=== PATIENT | male | born 1965 | race Caucasian/White ===

== ENCOUNTER 2018-06-10 13:49 | Observation (INO) ==
[2010-09-13 08:25] VITALS: BP 139/76
[2018-06-10] MEDS ORDERED: Sodium Chloride 0.9% 1,000 ML PRIMARY IV ONE (14:09)
[2018-06-10 14:27] LABS: BILIRUBIN,URINE NEGATIVE (NEG); CLARITY,URINE CLEAR (CLEAR); COLOR,URINE YELLOW (Y); GLUCOSE, URINE (UA) NEGATIVE (NEG); OCCULT BLOOD,URINE Trace-lysed (NEG); PH,URINE 5.5 (5.0-8.5); PROTEIN,URINE NEGATIVE (NEG); UROBILINOGEN,URINE 0.2 EU/dL (0.2)
[2018-06-10 14:33] LABS: RBC,URINE 0-1 /hpf; SQUAMOUS EPITHELIAL CELL,UR RARE; URINE CRYSTALS FEW; URINE SAMPLE TYPE CLEAN CATCH URINE
--- NOTE | 2018-06-10 14:47 | PDOC ---
General Adult HPI - General Chief Complaint: General Medical Stated Complaint: referal from michael r/o ruptured appy Date Seen by Provider: 06/10/18 Time Seen by Provider: 13:55 Source: POSITIVE: Patient Exam Limitations: POSITIVE: No limitations Nurse's Notes Reviewed & Considered: Yes - History of Present Illness Initial Comment: The patient is a 53-year-old male who is referred to the emergency department with an intra-abdominal abscess and possible ruptured appendicitis. The patient states that he had developed some "pinching" pain in his right lower abdomen 2 or 3 weeks ago. He states that this was more of a nagging pain and rated his pain level may be a 2 out of 10. This pain has continued however over the past 3 or 4 days he has developed "flulike" symptoms including fevers and chills which are worse primarily at night. He also reports that the pain in his right lower abdomen at times does seem to be getting worse. He notices this pain especially with certain movements and getting in and out of the vehicle. He has had some associated nausea and dry heaves. He has not noticed any significant change in bowel movements or urinary symptoms. He has had previous hernia repair however denies any other abdominal surgeries. He was initially evaluated at the walk-in clinic and blood work was drawn and he was sent to the radiology department for CT scan of the abdomen and pelvis. The CAT scan apparently shows an ill-defined swollen appendix with a 3.8 x 6 cm enhancing lesion in the right lower quadrant most likely representing abscess from perforated appendicitis. He was subsequently advised to come here to the emergency department for evaluation and surgical consultation. Have you received a tetanus shot in the past 10 years?: Unknown - Patient Home Medications Home Medications: Home Medications NK [No Home Medications Reported] 06/05/14 - Patient Allergies Allergies/Adverse Reactions: Allergies Allergy/AdvReac Type Severity Reaction Status Date / Time No Known Allergies Allergy Verified 06/10/18 13:50 Past Medical History - heen HEENT History: Denies History Cardiovascular History: Denies History Respiratory History: Denies History Gastrointestinal History: Denies History Genitourinary History: Denies History Endocrine History: Denies History Prosthesis or Implant: No Additional Musculoskeletal History: multi hip and spinal surgery Neurological History: Denies History Blood Disorders: Denies History Psychiatric History: Denies History History of Sexually Transmitted Diseases: No Cancer History: Denies History In Past Year Been Physically Harmed or Verbally Threatened: No History of MDRO: No Tobacco Use: Never Smoker Alcohol Use: Occasionally Type of alcohol normally used: Beer In the Past 12 Months, Have Used or Abuse Any Substance: None Previous Surgical History: Yes Type / Date of Surgery: hip surgery- left hip infection. hernia surgery. back surgery. viscetomy Anesthesia Reactions: No Malignant Hyperthermia: No Significant Family History: No pertinent family hx Past Medical History Reviewed: Reviewed - No Changes ROS - Limitations ROS Limitations: No Limitations Constitution: REPORTS: Chills, Fever Cardiovascular: REPORTS: Denies Cardiac Symptoms Respiratory: REPORTS: Denies Resp Symptoms Neurological: REPORTS: Denies Neuro Symptoms Gastrointestinal: REPORTS: Abdominal Pain, Nausea, Vomitting (Dry heaves) Musculoskeletal: REPORTS: Denies MS Symptoms Genitourinary: REPORTS: Denies Symptoms, Flank Pain (He states sometimes the pain does radiate to the right flank area) Eyes: REPORTS: Denies Symptoms ENT: REPORTS: Denies Symptoms Skin: REPORTS: Rash General Adult Exam - General Appearance General Appearance: POSITIVE: Alert, Cooperative, No Acute Distress - HEENT HEENT: POSITIVE: Head Inspection Nml - Respiratory Respiratory: POSITIVE: No Respiratory Distress, Breath Sounds Normal - Cardiovascular Cardiovascular: POSITIVE: Regular Rate & Rhythm, No Murmur - Abdomen Abdomen: Soft: (All Quadrants), Normal Bowel Sounds: (All Quadrants), No Distention: (All Quadrants) Additional Abdominal Details: The patient does have tenderness primarily in the right lower quadrant with some palpable fullness in the right lower quadrant, some mild localized rebound tenderness in the right lower quadrant, no CVA tenderness currently - Skin Skin: POSITIVE: Normal Color, No Rash - Extremities Extremity: Normal ROM: (All Extremities), Normal Inspection: (All Extremities) General Adult Progress - Results Reviewed by me Xrays/CTs/US Reviewed by me: Yes Discussed with Radiologist: Yes Radiology Findings: CT scan of the abdomen and pelvis done prior to coming to the emergency department shows a 6 x 3.8 cm enhancing lesion in the right lower quadrant with an abnormal appearing appendix most likely representing a ruptured appendicitis per radiologist. Lab Results Reviewed by Me: Yes Lab Results:: Laboratory Results 06/10/18 06/10/18 06/10/18 13:55 14:03 14:03 Lactic Acid 1.3 C-Reactive Protein 17.2 H Ur Collection Type Clean catch urine Urine Color Yellow Urine Clarity Clear Urine pH 5.5 Ur Specific [place] 1.010 Urine Protein Negative Urine Glucose (UA) Negative Urine Ketones Negative Urine Occult Blood Trace-lysed H Urine Nitrate Negative Urine Bilirubin Negative Urine Urobilinogen 0.2 Ur Leukocyte Esterase Negative Urine RBC 0-1 Urine WBC None Ur Squamous Epith Cells Rare Ur Renal Epithelial Cell None Urine Crystals Few Urine Bacteria None Urine Casts None Urine Mucus None Urine Trichomonas None Urine Yeast None Ur Culture Indicated? Culture not set - Patient's Progress MDM / ED Course: An IV was established and blood cultures and lactate were drawn with IV start. The patient's pain level is currently only a 2 out of 10. Blood work done in the clinic reveals a normal CMP with a normal white count at 10 which is slightly left shifted with 3% bands. CRP added here is elevated at 17. Lactate is normal at 1.3. CT findings are discussed above. A surgery consultation from Dr. Monique was obtained. He evaluated the patient in the emergency department and has made preparations to take the patient to the operating room. - Consult Counseled: POSITIVE: Patient, RE: Lab Results, RE: Radiology Results, RE: DX, RE: Need for F/U Patient Care Time - Estimated PCT Patient Care Time (In Minutes): 20 Vital Signs - Recent Vital Signs Vital Signs: Vital Signs (Last 8 hours) Temp Pulse Pulse Resp BP BP Pulse Ox 06/10/18 16:50 99.2 F 63 16 138/80 97 06/10/18 14:55 99.1 F 60 14 135/80 98 06/10/18 13:50 97.9 F 63 16 148/84 94 - VS Reviewed Vital Signs Reviewed: Yes Discharge Clinical Impression: Ruptured appendicitis Discharge Disposition: Transferred to OR Condition: Fair
[2018-06-10] MEDS ORDERED: MIDAZOLAM 5 MG/1 ML ONE (16:28)
[2018-06-10] MEDS ORDERED: fentaNYL Inj 250 MCG/5 ML VIAL ONE (16:28)
[2018-06-10] MEDS ORDERED: REMIFENTANIL 1 MG/1 ML IV ONE ×2 (16:28→18:32)
[2018-06-10] MEDS ORDERED: ROCURONIUM 10 MG/1 ML - 5 ML VIAL IVP ONE (16:30)
[2018-06-10] MEDS ORDERED: FAMOTIDINE 20 MG/2 ML VIAL IVP ONE ×2 (16:31→16:44)
[2018-06-10] MEDS ORDERED: LIDOCAINE MPF 2% - 5 ML (20 MG/1 ML) ONE (16:36)
[2018-06-10] MEDS ORDERED: PROPOFOL 10 MG/1 ML (200 MG/20 ML) VIAL IV ONE (16:36)
[2018-06-10] MEDS ORDERED: KETOROLAC 30 MG/1 ML VIAL ONE (16:36)
[2018-06-10] MEDS: CefOXitin Inj 2 GM in Sodium Chloride 0.9% 100 ML IV ONE ×3 (16:38→16:55)
[2018-06-10] MEDS ORDERED: CITRIC ACID/SODIUM CITRATE 30 ML CUP PO ONE (16:44)
[2018-06-10] MEDS ORDERED: LIDOCAINE HCL 1%/EPI 1:100,000 - 20 ML VIAL ONE (17:07)
[2018-06-10] MEDS ORDERED: BUPivacaine Inj 0.5% PF (5mg/ml) 10ml vial ONE (17:07)
[2018-06-10] MEDS ORDERED: LIDOCAINE HCL 2 % 10 ML JELLY URO-JECT TOPICAL ONE ×2 (17:37→17:57)
[2018-06-10] MEDS ORDERED: ONDANSETRON 4 MG/2 ML VIAL ONE (17:38)
[2018-06-10] MEDS ORDERED: Acetaminophen 1000mg Inj 1,000 MG/100 ML VIAL IV ONE (18:06)
[2018-06-10] MEDS ORDERED: NEOSTIGMINE 1 MG/1 ML - 10 ML ONE (18:08)
[2018-06-10] MEDS ORDERED: GLYCOPYRROLATE 0.2 MG/1 ML VIAL ONE ×2 (18:08→18:51)
[2018-06-10] MEDS ORDERED: LIDOCAINE W/ SODIUM BICARB 0.5 ML SYR SUBD PRN (19:04)
[2018-06-10] MEDS ORDERED: HYDROmorphone 2 MG/1 ML IVP PRN (19:04)
[2018-06-10] MEDS ORDERED: HYDROmorphone 2 MG/1 ML ONE (19:12)
[2018-06-10] MEDS ORDERED: MORPHINE SULFATE 2 MG/1 ML IVP PRN (19:39)
[2018-06-10] MEDS ORDERED: ONDANSETRON 4 MG/2 ML VIAL IVP PRN (19:39)
--- NOTE | 2018-06-10 19:58 | CRNA.PROGR ---
Anesthesia Time - Procedure/Recovery Time Start Date: 06/10/18 Anesthesia : Time In: 17:16 Anesthesia : Time Out: 19:03 - Other Weight: 92.533 kg Height: 6 ft Body Mass Index (BMI): 27.6 Physical Status: P2 Anesthesia Type: General Anesthesia : ET
[2018-06-10] MEDS ORDERED: CefOXitin Inj 2 GM in Sodium Chloride 0.9% 100 ML IV SCH (20:00)
--- NOTE | 2018-06-10 21:46 | GEN.OPNOTE ---
Operative Note Surgery Date: 06/10/18 Preoperative Diagnosis: Acte appendicitis with rupture Postoperative Diagnosis: Acute perforated appemdicitis with abscess and phlegmon Procedure: Laparoscopic appendectomy with drinage of appendiceal abscess Surgeon: Anna Monique Marketing Assistant Retail Division: Other (None) Anesthesia Provider: Samia Dent CRNA Anesthesia Type: General Indications: Abdominal pain, RLQ and abnormal CT Findings: Ruptured appendicitis with abscess and phlegmon Necrotic appendix Complications: None
[2018-06-10] MEDS: CefOXitin Inj 2 GM in Sodium Chloride 0.9% 100 ML IV SCH (22:51)
[2018-06-10] MEDS: Lactated Ringers 1,000 ML PRIMARY IV SCH (22:52)
[2018-06-11] MEDS: HYDROcodone-APAP 5 MG -325 MG TABLET PO PRN ×3 (00:09→12:59)
[2018-06-11 05:00] LABS: BASOPHILS # (AUTO) 0.01 10*3/UL; BASOPHILS % (AUTO) 0.1 % (0-1); EOSINOPHILS # (AUTO) 0 10*3/UL; EOSINOPHILS % (AUTO) 0 % (0-8); Hematocrit [HCT] 38.6 % (42.0-52.0); Hemoglobin [HGB] 12.5 g/dL (14.0-18.0); LYMPHOCYTES # (AUTO) 0.98 10*3/uL; MEAN CORPUSCULAR HEMOGLOBIN 28.9 PG (27-31); MEAN CORPUSCULAR HGB CONC 32.4 g/dL (33-37); MEAN CORPUSCULAR VOLUME 89.4 FL (80-90); MEAN PLATELET VOLUME 9.8 FL (7.4-12.2); MONOCYTES # (AUTO) 0.92 10*3/UL (0.3-0.8); MONOCYTES % (AUTO) 8.3 % (5-15); NEUTROPHILS # (AUTO) 9.09 10*3/UL; NEUTROPHILS % (AUTO) 82.5 % (50-80); RED BLOOD COUNT 4.32 10^6/uL (4.70-6.10)
[2018-06-11] MEDS: CefOXitin Inj 2 GM in Sodium Chloride 0.9% 100 ML IV SCH ×3 (05:05→16:03)
[2018-06-11 05:38] LABS: PLATELET MORPHOLOGY COMMENT NORMAL MORPHOLOGY (NORM); RBC MORPHOLOGY COMMENT NORMAL MORPHOLOGY (NORM); WBC MORPHOLOGY COMMENT NORMAL MORPHOLOGY (NORM)
[2018-06-11] MEDS: IBUPROFEN 600 MG TABLET PO PRN ×2 (08:12→16:03)
[2018-06-11] MEDS: Lactated Ringers 1,000 ML PRIMARY IV SCH (08:41)
--- NOTE | 2018-06-11 12:16 | CRNA.PROGR ---
Anesthesia Note - Progress Notes Anesthesia Progress Note: Pt is dressed and ready for DC, has not complaints. Tono PATEL
--- NOTE | 2018-06-11 13:57 | PDOC(PROG) ---
Subjective Post Op Day: 1, laparoscopic appendectomy Additional Details: He has no complaints. Good pain control with minimal narcotics. No significant nausea. Ambulatory. Objective : Data - Labs CBC and BMP: 06/11/18 04:10 - Vital Signs Vital Signs and I&O: Vital Signs - Last Taken Temperature 97.6 F 06/11/18 12:53 Pulse Rate 62 06/11/18 12:53 Respiratory Rate 19 06/11/18 12:53 Blood Pressure 123/78 06/11/18 12:53 Pulse Ox 98 06/11/18 12:53 Intake and Output (24hr x 4 totals) 06/09/18 06/10/18 06/11/18 06/12/18 05:59 05:59 05:59 05:59 Intake Total 3371 / 3371 3573 / 3573 Output Total 350 / 350 1300 / 1300 Balance 3021 / 3021 2273 / 2273 Objective : Exam - Respiratory Respiratory Exam: Clear to Auscultation - Bilaterally - GI/Abdominal GI/Abdominal Exam: Non Tender, Non Distended (No bowel sounds) Assessment and Plan - Assessment / Plan Additional Assessment/Plan Details: Doing well. Plan: 1. Discharge home after 5 pm dose of antibiotic 2. We discussed possibility path may show carcinoid tumor and implications of this whether benign or malignant 3. po antibiotics as outpt. 4. We discussed importance of colonoscopy in 3 months or so 5. I will arrange for follow-up as outpt. 6. We discussed high risk (30%) of abscess as complication and signs and symptoms.
== END 2018-06-11 16:44 | disposition home or self-care (01) ==
LOC: ER 13:49 → MED/SURG 16:55 → OR 16:55
PROVIDERS: ADMIT Surgery; ATTEND Surgery